=== PATIENT | male | born 1975 | race Caucasian/White ===

== ENCOUNTER 2023-02-22 12:02 | Emergency (ER) | payer OTHER, SELFPAY ==
[2023-02-22 12:13] VITALS: BP 126/74; PULSE 74; RESP 16; TEMP 36.6; O2SAT 97
--- NOTE | 2023-02-22 13:00 | ED.SKABFB ---
HPI - Skin/Abscess/Foreign Bdy General Chief complaint: Skin/Abscess/Foreign Body Stated complaint: Skin Sore/Toe Source: patient and RN notes reviewed History of Present Illness HPI narrative: 47 yo M presents to urgent care with complaints of right big toe pain and swelling x approximately 3 weeks. Pt states he believes he ripped some skin off by the nail initially and it began bleeding. Pt states he has been having increased pain and swelling to the toe ever since. Pt denies any pus drainage, fevers, chills, numbness, or tingling. Pt has been putting Neosporin on it without relief. Related Data Allergies Allergy/AdvReac Type Severity Reaction Status Date / Time No Known Allergies Allergy Verified 02/22/23 12:12 Review of Systems Review of Systems: Pertinent positives and pertinent negatives per HPI. PMFSH Comments At the time of my signature, I reviewed and agree with the nursing past medical, surgical, social, and family history. There is no relevant family history pertinent to the patient complaint. Exam Narrative: GENERAL: This is a well-nourished, well-developed patient, in no apparent distress. HEAD: normocephalic, atraumatic. EYES: Sclera clear/white. Vision is grossly intact. EARS: External ears normal, auditory canals clear and without drainage. Hearing grossly intact. NOSE: External nose normal with no obvious nasal discharge, nares without redness, no rhinorrhea. THROAT: Mucous membranes moist, posterior pharynx clear. NECK: Neck supple, non-tender without lymphadenopathy, masses or thyromegaly. CARDIOVASCULAR: Regular rate RESPIRATORY: No respiratory distress GASTROINTESTINAL: Abdomen soft, non-tender, nondistended. Bowel sounds are active. No hepato-splenomegaly, or palpable masses. No guarding. SKIN: warm, intact with no suspicious lesions or rash, good texture and turgor. NEURO: awake, alert, and oriented to person, place and time. There were no obvious focal neurologic abnormalities. EXTREMITIES: Right great toe erythremic and edematous. Dried blood around nail bed. No area of fluctuance noted. Erythremic is not circumferential. Course Course Level of Care: Express Care Visit Vital Signs Vital signs: Vital Signs Temperature 98 F 02/22/23 12:13 Pulse Rate 74 02/22/23 12:13 Respiratory Rate 16 02/22/23 12:13 Blood Pressure 126/74 02/22/23 12:13 Pulse Oximetry 97 02/22/23 12:13 Oxygen Delivery Room Air 02/22/23 12:13 Temperature 98 F 02/22/23 12:13 Pulse Rate 74 02/22/23 12:13 Respiratory Rate 16 02/22/23 12:13 Blood Pressure 126/74 02/22/23 12:13 Pulse Oximetry 97 02/22/23 12:13 Oxygen Delivery Room Air 02/22/23 12:13 Reviewed. MDM - Skin/Abscess/Foreign Bdy MDM Narrative Medical decision making narrative: With any new or worsening symptoms, you need to be seen in the emergency department or by backpackers manager. Differential Diagnosis Differential diagnosis: Likely cellulitis and other (Paronychia, ingrown toenail) Critical Care Time Critical Care Time Critical Care Time: No Discharge Plan Discharge Clinical Impression: Cellulitis Qualifiers: Site of cellulitis: extremity Site of cellulitis of extremity: toe Laterality: left Qualified Code(s): L03.032 - Cellulitis of left toe Patient Disposition: Home, Self-Care Condition: Stable Instructions: Antibiotic Form, Cellulitis (ED) Additional Instructions: With any new or worsening symptoms, you need to be seen in the emergency department or by backpackers manager. Prescriptions: New cephalexin 500 mg capsule 500 mg PO Q12H 7 Days Qty: 14 0RF Follow-up/Referrals: PHYSICIAN,[employer] [Primary Care Provider] - Time of Disposition: 13:01
== END 2023-02-22 13:07 | disposition home or self-care (01) ==
PROVIDERS: Emergency Provider Nurse Practitioner Family
DX: L03.032 Cellulitis of left toe (principal)
CPT/HCPCS: 99213; G0463